=== PATIENT | female | born 1990 ===

== ENCOUNTER → 2021-04-15 | Outpatient (CLI) | payer OTHER | END | disposition home or self-care (01) | LOC: PRENATAL 09:31 | PROVIDERS: ATTEND Obstetrics & Gynecology Maternal & Fetal Medicine | DX: O35.0XX1 Maternal care for (suspected) central nervous system malformation in fetus, fetus 1 (principal); O35.3XX1 Maternal care for (suspected) damage to fetus from viral disease in mother, fetus 1; O98.512 Other viral diseases complicating pregnancy, second trimester; O99.212 Obesity complicating pregnancy, second trimester; Z36.89 Encounter for other specified antenatal screening; Z3A.21 21 weeks gestation of pregnancy ==

== ENCOUNTER → 2021-07-01 | Outpatient (CLI) | payer OTHER | END | disposition home or self-care (01) | LOC: PRENATAL 06-05 16:00 | PROVIDERS: ATTEND Obstetrics & Gynecology Maternal & Fetal Medicine | DX: O36.8131 Decreased fetal movements, third trimester, fetus 1 (principal); O28.1 Abnormal biochemical finding on antenatal screening of mother; O26.843 Uterine size-date discrepancy, third trimester; Z36.89 Encounter for other specified antenatal screening; Z3A.31 31 weeks gestation of pregnancy ==